=== PATIENT | male | born 1970 | race Caucasian/White ===

== ENCOUNTER 2018-01-13 18:59 | Inpatient (IN) | payer MEDICAID ==
[~2018-01-13] VITALS: Ht 170.2 cm; Wt 88.5 kg
[~2018-01-13 18:59] MED LIST: FOLI-43 PO; KEPP250 PO; L25 PO; LORA-250 PO; METO-539 PO; POTA20TA82 PO; THIA100T72 PO
[2018-01-13] MEDS ORDERED: SODIUM CHLORIDE 0.9% 1,000 ML IV ONE (19:10)
[2018-01-13] MEDS ORDERED: LEVETIRACETAM 1000MG/100ML 100 ML IV ONE (19:15)
[2018-01-13] MEDS ORDERED: LORAZEPAM 2MG/ML CPJ IV ONE (19:30)
[2018-01-13 19:56] LABS: BASOPHILS % 0.5 % (0.0-2.0); HEMATOCRIT. 43.6 % (42.0-52.0); HEMOGLOBIN. 14.4 g/dL (14.0-18.0); MEAN CORPUSCULAR HEMOGLOBIN 30.5 pg (28.0-32.0); MEAN CORPUSCULAR VOLUME 92.3 fL (80.0-94.0); MEAN PLATELET VOLUME 6.8 fl (7.4-10.4); MONOCYTES % 10.3 % (2.0-8.0); NEUTROPHILS % 72.2 % (40.0-76.0); PLATELET 274 x1000/uL (130-400); RED BLOOD CELL COUNT 4.73 mill/uL (4.7-6.1); RED CELL DISTRIBUTION WIDTH 18.8 % (11.6-14.6)
[2018-01-13 20:02] LABS: CHLORIDE 103 mEq/L (98-107)
[2018-01-13 20:03] LABS: INR 1.1; PROTHROMBIN TIME 10.8 sec (9.1-11.1)
[2018-01-13 20:06] LABS: ETHANOL BLOOD < 10 mg/dL
[2018-01-13 20:07] LABS: HCG SCREEN NEGATIVE
[2018-01-13 20:41] LABS: CARBAMAZEPINE < 0.5 ug/mL (4-12); PHENOBARBITAL < 2.1 ug/mL (15.0-40.0); VALPROIC ACID < 3.0 ug/mL (50-100)
[2018-01-13] MEDS ORDERED: SODIUM CHLORIDE 0.9% 1,000 ML IV NR (21:05)
[2018-01-13] MEDS ORDERED: LORAZEPAM 2MG/ML CPJ IV NR (21:15)
[2018-01-13] MEDS ORDERED: POTASSIUM CHLORIDE INJ 40 MEQ in DEXT 5% WATER 250 ML IV NR (21:45)
[2018-01-13] MEDS ORDERED: IPRATROPIUM/ALBUTEROL 0.5-3(2.5)MG/3ML NEB INH PRN (23:15)
[2018-01-13] MEDS ORDERED: ONDANSETRON 4MG ODT PO PRN (23:15)
[2018-01-13] MEDS ORDERED: MAGNESIUM/ALUMINUM HYDROXIDE/SIMETHICONE 30ML UDC PO PRN (23:15)
[2018-01-13] MEDS ORDERED: DOCUSATE SODIUM 100MG CAPSULE PO PRN (23:15)
[2018-01-14] VITALS (7 sets, daily range): BP systolic 103–172; BP diastolic 66–118
[2018-01-14] MEDS: LORAZEPAM 2MG/ML CPJ IV PRN ×3 (01:47→21:06)
[2018-01-14] MEDS: SODIUM CHLORIDE 0.9% 1,000 ML IV SCH ×3 (01:59→21:14)
[2018-01-14] MEDS ORDERED: MVI, ADULT NO.1 10 ML, FOLIC ACID 1 MG, THIAMINE HCL 100 MG in SODIUM CHLORIDE 0.9% 1,0... IV NR ×4 (04:00)
[2018-01-14] MEDS: CHLORDIAZEPOXIDE 25MG CAPSULE PO SCH ×3 (05:24→21:06)
[2018-01-14 07:30] LABS: BASOPHILS % 0.3 % (0.0-2.0); HEMOGLOBIN. 14.9 g/dL (14.0-18.0); LYMPHOCYTES % 15.8 % (20.0-50.0); MEAN CORPUSCULAR HEMOGLOBIN 31.2 pg (28.0-32.0); MEAN CORPUSCULAR VOLUME 92.3 fL (80.0-94.0); MEAN PLATELET VOLUME 7.2 fl (7.4-10.4); MONOCYTES % 11.9 % (2.0-8.0); PLATELET 271 x1000/uL (130-400); RED BLOOD CELL COUNT 4.76 mill/uL (4.7-6.1); RED CELL DISTRIBUTION WIDTH 18.2 % (11.6-14.6)
[2018-01-14 07:33] LABS: CHLORIDE 95 mEq/L (98-107)
[2018-01-14 07:53] LABS: LDL CHOLESTEROL 117 mg/dL (5-100)
[2018-01-14 07:54] LABS: CREATINE KINASE 715 IU/L (39-308); HDL CHOLESTEROL 86 mg/dL (40-59)
[2018-01-14 07:57] LABS: CREATINE KINASE MB FRACTION 7.8 ng/mL (0.5-3.6)
[2018-01-14 12:09] LABS: HEPATITIS B SURFACE ANTIGEN NEGATIVE
[2018-01-14 12:38] LABS: HEPATITIS B CORE AB IGM NEGATIVE
[2018-01-14 12:39] LABS: HEPATITIS A AB IGM NEGATIVE (NEGATIVE)
[2018-01-14] MEDS: LORAZEPAM 1MG TABLET PO PRN (13:14)
[2018-01-14] MEDS: PANTOPRAZOLE 40MG DR TABLET PO SCH (13:14)
[2018-01-14] MEDS ORDERED: SODIUM CHLORIDE 0.9% 1,000 ML IV SCH (13:30)
[2018-01-14] MEDS ORDERED: PANTOPRAZOLE SODIUM 40 MG/VIAL IV NR (14:15)
[2018-01-14] MEDS ORDERED: METOCLOPRAMIDE HCL 10MG/2ML VIAL IV SCH ×2 (14:45→18:00)
[2018-01-14 16:41] LABS: CREATINE KINASE 873 IU/L (39-308)
[2018-01-14 16:42] LABS: CREATINE KINASE MB FRACTION 9.6 ng/mL (0.5-3.6)
[2018-01-14] MEDS: METOCLOPRAMIDE HCL 10MG/2ML VIAL IV SCH (21:05)
[2018-01-14] MEDS: LEVETIRACETAM 500MG TABLET PO SCH (21:06)
[2018-01-14] MEDS: CLONIDINE 0.1MG TABLET PO PRN (21:14)
[2018-01-14] MEDS: ACETAMINOPHEN 325MG TABLET PO PRN (23:59)
[2018-01-15] VITALS: BP 136/97
[2018-01-15] MEDS: LORAZEPAM 2MG/ML CPJ IV PRN ×2 (03:01→20:55)
[2018-01-15] MEDS: METOCLOPRAMIDE HCL 10MG/2ML VIAL IV SCH ×4 (03:02→20:55)
[2018-01-15 04:00] VITALS: BP 127/76
[2018-01-15] MEDS: CHLORDIAZEPOXIDE 25MG CAPSULE PO SCH ×3 (05:42→20:55)
[2018-01-15] MEDS: LORAZEPAM 1MG TABLET PO PRN (06:49)
[2018-01-15 06:53] LABS: BASOPHILS % 0.1 % (0.0-2.0); HEMOGLOBIN. 14.3 g/dL (14.0-18.0); LYMPHOCYTES % 18.2 % (20.0-50.0); MEAN CORPUSCULAR HEMOGLOBIN 30.8 pg (28.0-32.0); MEAN CORPUSCULAR VOLUME 92.3 fL (80.0-94.0); MEAN PLATELET VOLUME 7.4 fl (7.4-10.4); MONOCYTES % 6.4 % (2.0-8.0); NEUTROPHILS % 75.3 % (40.0-76.0); PLATELET 205 x1000/uL (130-400); RED BLOOD CELL COUNT 4.65 mill/uL (4.7-6.1)
[2018-01-15 08:00] VITALS: BP 120/76
[2018-01-15] MEDS: MULTIVITAMINS,THER W-MINERALS TABLET PO SCH (08:45)
[2018-01-15] MEDS: THIAMINE HCL 100MG TABLET PO SCH (08:48)
[2018-01-15] MEDS: LEVETIRACETAM 500MG TABLET PO SCH ×2 (08:48→20:55)
[2018-01-15] MEDS: FOLIC ACID 1MG TABLET PO SCH (08:48)
[2018-01-15] MEDS: PANTOPRAZOLE 40MG DR TABLET PO SCH (08:48)
[2018-01-15 11:56] LABS: CHLORIDE 98 mEq/L (98-107)
[2018-01-15 12:00] VITALS: BP 97/68
[2018-01-15] MEDS ORDERED: POTASSIUM CHLORIDE 20MEQ TABLET SR PO NR ×2 (14:30→18:30)
[2018-01-15 16:00] VITALS: BP 143/94
[2018-01-15] MEDS: SODIUM CHLORIDE 0.9% 1,000 ML IV SCH ×2 (16:19→18:00)
[2018-01-15 20:00] VITALS: BP 144/93
[2018-01-15] MEDS: PIPERACILLIN/TAZ 3.375G PREMIX 50 ML IV SCH (20:55)
[2018-01-15] MEDS ORDERED: PIPERACILLIN/TAZOBACTAM 3.375GM/50ML PREMIX IV SCH (22:00)
[2018-01-16] VITALS: BP 147/95
[2018-01-16] MEDS: METOCLOPRAMIDE HCL 10MG/2ML VIAL IV SCH ×4 (03:54→21:29)
[2018-01-16] MEDS: PIPERACILLIN/TAZ 3.375G PREMIX 50 ML IV SCH ×3 (03:54→21:29)
[2018-01-16] MEDS: SODIUM CHLORIDE 0.9% 1,000 ML IV SCH ×2 (03:54→13:37)
[2018-01-16 04:00] VITALS: BP 114/80
[2018-01-16] MEDS: LORAZEPAM 1MG TABLET PO PRN ×2 (04:05→08:28)
[2018-01-16] MEDS: CHLORDIAZEPOXIDE 25MG CAPSULE PO SCH ×3 (05:02→21:29)
[2018-01-16 06:57] LABS: BASOPHILS % 0.5 % (0.0-2.0); EOSINOPHILS % 0.2 % (0.0-5.0); HEMATOCRIT. 37.2 % (42.0-52.0); HEMOGLOBIN. 12.5 g/dL (14.0-18.0); LYMPHOCYTES % 26.3 % (20.0-50.0); MEAN CORPUSCULAR HEMOGLOBIN 31.7 pg (28.0-32.0); MEAN PLATELET VOLUME 7.8 fl (7.4-10.4); MONOCYTES % 7.1 % (2.0-8.0); NEUTROPHILS % 65.9 % (40.0-76.0); PLATELET 182 x1000/uL (130-400); RED BLOOD CELL COUNT 3.95 mill/uL (4.7-6.1); RED CELL DISTRIBUTION WIDTH 17.2 % (11.6-14.6)
[2018-01-16 08:00] VITALS: BP 124/82
[2018-01-16 08:15] LABS: CHLORIDE 104 mEq/L (98-107)
[2018-01-16] MEDS: THIAMINE HCL 100MG TABLET PO SCH (08:23)
[2018-01-16] MEDS: LEVETIRACETAM 500MG TABLET PO SCH ×2 (08:23→21:29)
[2018-01-16] MEDS: FOLIC ACID 1MG TABLET PO SCH (08:23)
[2018-01-16] MEDS: MULTIVITAMINS,THER W-MINERALS TABLET PO SCH (08:23)
[2018-01-16] MEDS ORDERED: FAMOTIDINE 20MG TABLET PO SCH (09:00)
[2018-01-16 12:00] VITALS: BP 153/111
[2018-01-16] MEDS: PANTOPRAZOLE SODIUM 40 MG/VIAL IV SCH (13:36)
[2018-01-16 16:00] VITALS: BP 146/94
[2018-01-16] MEDS: SUCRALFATE 1 G/10 ML UDC PO SCH ×2 (17:29→21:29)
[2018-01-16 20:00] VITALS: BP 180/120
[2018-01-16] MEDS: CLONIDINE 0.1MG TABLET PO PRN (21:29)
[2018-01-16] MEDS: LORAZEPAM 2MG/ML CPJ IV PRN (21:32)
[2018-01-17] VITALS (7 sets, daily range): BP systolic 116–154; BP diastolic 82–106
[2018-01-17] MEDS: SODIUM CHLORIDE 0.9% 1,000 ML IV SCH ×3 (00:03→20:18)
[2018-01-17] MEDS: PANTOPRAZOLE SODIUM 40 MG/VIAL IV SCH ×3 (00:04→20:18)
[2018-01-17] MEDS: METOCLOPRAMIDE HCL 10MG/2ML VIAL IV SCH ×4 (02:41→20:19)
[2018-01-17] MEDS: PIPERACILLIN/TAZ 3.375G PREMIX 50 ML IV SCH ×3 (03:38→20:18)
[2018-01-17] MEDS: CHLORDIAZEPOXIDE 25MG CAPSULE PO SCH ×3 (05:11→20:19)
[2018-01-17] MEDS: LORAZEPAM 2MG/ML CPJ IV PRN ×2 (05:11→20:38)
[2018-01-17] MEDS: CLONIDINE 0.1MG TABLET PO PRN ×2 (05:12→20:19)
[2018-01-17 05:36] LABS: BASOPHILS % 1.2 % (0.0-2.0); EOSINOPHILS % 0.8 % (0.0-5.0); HEMATOCRIT. 37.3 % (42.0-52.0); HEMOGLOBIN. 12.4 g/dL (14.0-18.0); LYMPHOCYTES % 28.5 % (20.0-50.0); MEAN CORPUSCULAR HEMOGLOBIN 31.6 pg (28.0-32.0); MEAN CORPUSCULAR VOLUME 94.7 fL (80.0-94.0); MEAN PLATELET VOLUME 7.8 fl (7.4-10.4); MONOCYTES % 8.3 % (2.0-8.0); NEUTROPHILS % 61.2 % (40.0-76.0); PLATELET 221 x1000/uL (130-400); RED BLOOD CELL COUNT 3.93 mill/uL (4.7-6.1); RED CELL DISTRIBUTION WIDTH 17.3 % (11.6-14.6)
[2018-01-17 06:48] LABS: CHLORIDE 110 mEq/L (98-107)
[2018-01-17] MEDS: SUCRALFATE 1 G/10 ML UDC PO SCH ×4 (08:32→20:19)
[2018-01-17] MEDS: THIAMINE HCL 100MG TABLET PO SCH (08:32)
[2018-01-17] MEDS: MULTIVITAMINS,THER W-MINERALS TABLET PO SCH (08:32)
[2018-01-17] MEDS: FOLIC ACID 1MG TABLET PO SCH (08:32)
[2018-01-17] MEDS: LEVETIRACETAM 500MG TABLET PO SCH ×2 (08:32→20:19)
[2018-01-17] MEDS: LORAZEPAM 1MG TABLET PO PRN ×2 (08:36→16:29)
[2018-01-17] MEDS: ACETAMINOPHEN 325MG TABLET PO PRN (19:13)
[2018-01-18] MEDS: METOCLOPRAMIDE HCL 10MG/2ML VIAL IV SCH ×3 (03:00→15:00)
[2018-01-18 04:00] VITALS: BP 126/77
[2018-01-18] MEDS: LORAZEPAM 2MG/ML CPJ IV PRN ×2 (04:41→09:31)
[2018-01-18] MEDS: CHLORDIAZEPOXIDE 25MG CAPSULE PO SCH ×2 (04:41→13:02)
[2018-01-18] MEDS: PIPERACILLIN/TAZ 3.375G PREMIX 50 ML IV SCH ×2 (04:41→13:03)
[2018-01-18] MEDS: SODIUM CHLORIDE 0.9% 1,000 ML IV SCH ×2 (04:42→16:00)
[2018-01-18 07:41] LABS: EOSINOPHILS % 0.9 % (0.0-5.0); HEMATOCRIT. 36.6 % (42.0-52.0); HEMOGLOBIN. 12.4 g/dL (14.0-18.0); MEAN CORPUSCULAR HEMOGLOBIN 32.3 pg (28.0-32.0); MEAN CORPUSCULAR VOLUME 94.9 fL (80.0-94.0); MEAN PLATELET VOLUME 7.8 fl (7.4-10.4); MONOCYTES % 11.4 % (2.0-8.0); NEUTROPHILS % 55.7 % (40.0-76.0); PLATELET 257 x1000/uL (130-400); RED BLOOD CELL COUNT 3.85 mill/uL (4.7-6.1)
[2018-01-18 07:49] LABS: CHLORIDE 107 mEq/L (98-107)
[2018-01-18 08:00] VITALS: BP 147/98
[2018-01-18] MEDS: PANTOPRAZOLE SODIUM 40 MG/VIAL IV SCH (09:27)
[2018-01-18] MEDS: SUCRALFATE 1 G/10 ML UDC PO SCH ×3 (09:27→17:40)
[2018-01-18] MEDS: FOLIC ACID 1MG TABLET PO SCH (09:27)
[2018-01-18] MEDS: LEVETIRACETAM 500MG TABLET PO SCH (09:28)
[2018-01-18] MEDS: THIAMINE HCL 100MG TABLET PO SCH (09:31)
[2018-01-18] MEDS: MULTIVITAMINS,THER W-MINERALS TABLET PO SCH (09:31)
[2018-01-18] MEDS ORDERED: POTASSIUM CHLORIDE 20MEQ TABLET SR PO NR (11:30)
[2018-01-18 12:00] VITALS: BP 152/103
[2018-01-18] MEDS ORDERED: LORA-250 PO (14:38)
[2018-01-18] MEDS ORDERED: PANT40TA4 MT (14:38)
[2018-01-18 16:00] VITALS: BP 162/105
[2018-01-18] MEDS: CLONIDINE 0.1MG TABLET PO PRN (16:25)
[2018-01-18 16:44] VITALS: BP 162/105
== END 2018-01-18 18:20 | disposition home or self-care (01) | DRG 53 ==
LOC: ER 18:59 → 7WST 21:40 → EDBEDREQ 21:44 → EDBEDREQTM 21:44 → CANRESERV 22:14 → ENRESERV 22:14
PROVIDERS: ADMIT Internal Medicine; ATTEND Internal Medicine
DX: G40.909 Epilepsy, unspecified, not intractable, without status epilepticus (principal); F10.231 Alcohol dependence with withdrawal delirium; R65.10 Systemic inflammatory response syndrome (SIRS) of non-infectious origin without acute organ dysfunction; K70.30 Alcoholic cirrhosis of liver without ascites; E86.0 Dehydration; I10 Essential (primary) hypertension; K76.0 Fatty (change of) liver, not elsewhere classified; Y90.0 Blood alcohol level of less than 20 mg/100 ml; R00.0 Tachycardia, unspecified; K29.20 Alcoholic gastritis without bleeding; E87.6 Hypokalemia; E78.5 Hyperlipidemia, unspecified; F15.90 Other stimulant use, unspecified, uncomplicated; J45.909 Unspecified asthma, uncomplicated; Z86.73 Personal history of transient ischemic attack (TIA), and cerebral infarction without residual deficits
CPT/HCPCS: 36415; 71045; 76700; 80048; 80053; 80061; 80156; 80165; 80184; 80185; 82550; 82553; 83605; 83690; 83735; 84443; 84484; 84703; 85025; 85610; 86705; 86709; 86803; 87040; 87086; 87340; 93005; 93970; 96361; 96365; 96367; 96375; 96376; 97110; 97116; 97162; 97166; 97535; 99285; C9113; G0482; J1953; J2060; J2543; J2765; J3411; J3480; J3490; J7030; J7060; J7620